=== PATIENT | male | born 1975 | race African-American/Black ===

== ENCOUNTER 2016-10-10 22:28 | Emergency (ER) | payer SELFPAY ==
[~2016-10-10] VITALS: Ht 193 cm; Wt 84.1 kg
[2016-10-10 22:34] VITALS: BP 146/86
== END 2016-10-11 00:33 | disposition left against medical advice (07) ==
LOC: EMS 22:31
DX: S01.511A Laceration without foreign body of lip, initial encounter (principal); Z53.21 Procedure and treatment not carried out due to patient leaving prior to being seen by health care provider; X58.XXXA Exposure to other specified factors, initial encounter; Y93.89 Activity, other specified; Y92.89 Other specified places as the place of occurrence of the external cause; Y99.8 Other external cause status